=== PATIENT | female | born 1970 | race Caucasian/White ===

== ENCOUNTER 2018-03-12 05:31 | Inpatient (IN) | payer BC ==
[~2018-03-12] VITALS: Ht 170.2 cm; Wt 105.0 kg
[~2018-03-12 05:31] MED LIST: CRESTOR10 MG PO; CYMBALTA30 MG PO; IRON325 M1 PO; METOPROLOL SUCC50 MG PO; MOBIC15 MG PO; WELLBUTRIN XL150 MG PO; ZESTRIL40 MG PO
[2018-03-12 06:20] VITALS: BP 164/78
[2018-03-12 06:23] VITALS: BP 164/78
[2018-03-12 12:37] VITALS: BP 134/62
[2018-03-12 16:12] VITALS: BP 140/61
[2018-03-12 19:59] VITALS: BP 148/81
[2018-03-12 23:56] VITALS: BP 114/80
[2018-03-13] VITALS (7 sets, daily range): BP systolic 132–193; BP diastolic 67–94
[2018-03-13 06:38] LABS: HEMOGLOBIN 14.6 G/DL (11.9-15.5)
[2018-03-14] VITALS: BP 178/84
[2018-03-14 03:30] VITALS: BP 190/81
[2018-03-14 04:33] VITALS: BP 130/57
[2018-03-14 05:42] LABS: HEMATOCRIT 42.6 % (36.0-46.0); HEMOGLOBIN 14.5 G/DL (11.9-15.5); MCV 89.5 FL (83-99)
[2018-03-14 08:00] VITALS: BP 158/65
[2018-03-14] MEDS ORDERED: ELIQUIS2.5 MG PO (08:56)
[2018-03-14] MEDS ORDERED: CELECOXIB200 MG PO (08:56)
[2018-03-14] MEDS ORDERED: HYDROMORPHONE HC2 MG PO (08:56)
[2018-03-14 11:50] VITALS: BP 131/62
== END 2018-03-14 14:50 | DRG 470 ==
LOC: 2SOUTH 05:31 → 3WEST 05:31 → 2SOUTH 08:38 → 3WEST 11:59 → ENRESERV 13:10 → 2SOUTH 14:05 → 3WEST 03-14 14:50
PROVIDERS: Orthopaedic Surgery
PROC: 0SRC0J9 Replacement of Right Knee Joint with Synthetic Substitute, Cemented, Open Approach (ICD-10-PCS; principal; 2018-03-12)
PROC: 3E0T3BZ Introduction of Anesthetic Agent into Peripheral Nerves and Plexi, Percutaneous Approach (ICD-10-PCS; 2018-03-12)
DX: M17.11 Unilateral primary osteoarthritis, right knee (principal); I10 Essential (primary) hypertension; E03.9 Hypothyroidism, unspecified; I44.7 Left bundle-branch block, unspecified; Z86.73 Personal history of transient ischemic attack (TIA), and cerebral infarction without residual deficits
CPT/HCPCS: 85014; 85018; C1713; J0690; J1170; J1885; J2250; J2405; J2795; J7050; Q0175; S0020